=== PATIENT | female | born 1985 | race Caucasian/White ===

== ENCOUNTER 2019-04-18 14:23 | Emergency (ER) | payer OTHER ==
[~2019-04-18] VITALS: Ht 162.6 cm; Wt 82.1 kg
[2019-04-18 14:42] VITALS: Ht 162.6 cm; Wt 82.1 kg
[2019-04-18 17:24] VITALS: BP 125/75
== END 2019-04-18 17:24 | disposition home or self-care (01) ==
LOC: ED 14:23
DX: B02.29 Other postherpetic nervous system involvement (principal); L30.9 Dermatitis, unspecified

== ENCOUNTER 2019-09-23 09:40 | Emergency (ER) | payer OTHER ==
[~2019-09-23] VITALS: Ht 162.6 cm; Wt 93.0 kg
[2019-09-23 09:49] VITALS: Ht 162.6 cm; Wt 93.0 kg
[2019-09-23 13:08] VITALS: BP 110/68
== END 2019-09-23 13:08 | disposition home or self-care (01) ==
LOC: ED 09:40
DX: N93.9 Abnormal uterine and vaginal bleeding, unspecified (principal); N83.201 Unspecified ovarian cyst, right side

== ENCOUNTER 2019-09-24 10:31 | Emergency (ER) | payer OTHER ==
[~2019-09-24] VITALS: Ht 162.6 cm; Wt 95.3 kg
[2019-09-24 10:42] VITALS: Ht 162.6 cm; Wt 95.3 kg
[2019-09-24 12:37] VITALS: BP 114/57
== END 2019-09-24 12:37 | disposition home or self-care (01) ==
LOC: ED 10:31
DX: N89.8 Other specified noninflammatory disorders of vagina (principal); R42 Dizziness and giddiness

== ENCOUNTER 2019-09-27 12:50 | Emergency (ER) | payer OTHER ==
[~2019-09-27] VITALS: Ht 162.6 cm; Wt 93.4 kg
[2019-09-27 13:03] VITALS: Ht 162.6 cm; Wt 93.4 kg
[2019-09-27 15:04] LABS: BASOPHIL % 0.4 % (0-2); PLATELET COUNT 287 x10^3mcL (130-400); RED CELL DISTRIBUTION WIDTH 13.6 % (11.5-14.5)
[2019-09-27 15:33] LABS: T4(THYROXINE) 8.8 ug/dL (4.7-13.3)
[2019-09-27 15:54] VITALS: BP 105/61
== END 2019-09-27 15:54 | disposition home or self-care (01) ==
LOC: ED 12:50
PROVIDERS: Emergency Medicine
DX: N93.9 Abnormal uterine and vaginal bleeding, unspecified (principal); Z88.0 Allergy status to penicillin; Z90.89 Acquired absence of other organs